=== PATIENT | female | born 1970 | race Caucasian/White ===

== ENCOUNTER 2022-06-20 16:21 | Emergency (ER) | payer OTHER ==
--- NOTE | 2022-06-20 18:50 | RAD REPORT ---
EXAM DESCRIPTION: [place] Single View06/20/2022 6:16 pm CLINICAL HISTORY: Chest pain COMPARISON: none FINDINGS: The lungs are hyperaerated. The The lungs appear clear of acute infiltrate. The heart is normal size IMPRESSION: No acute abnormalities displayed
[2022-06-20 20:28] LABS: Absolute Lymphocytes (CBC) 1.9 K/uL (0.7-4.9); Hematocrit 40.2 % (36.0-45.0); Lymphocytes % 34.2 % (15.3-44.8); MPV 8.3 fL (7.6-11.3); Protime INR 1.05; RBC Red Blood Cell Count 4.51 M/uL (3.86-4.86)
[2022-06-20 20:30] LABS: Urine Bacteria None Seen /HPF (<20); Urine Crystals Unidentified Few /HPF (None Seen); Urine Mucus Slight /HPF (None Seen); Urine RBC <5 /HPF (None Seen)
[2022-06-20 20:50] LABS: ALT/SGPT 19 U/L (13-56); AST/SGOT 17 U/L (15-37); Albumin 3.8 g/dL (3.4-5.0); Alkaline Phosphatase 83 U/L (45-117); BUN Blood Urea Nitrogen 5 mg/dL (7-18); Bicarbonate 28 mmol/L (21-32); Bilirubin Total 0.3 mg/dL (0.2-1.0); Glomerular Filtration Rate 105 ml/min (=/>90); Glucose Level 96 mg/dL (74-106); Magnesium 2.1 mg/dL (1.6-2.4); Potassium 3.2 mmol/L (3.5-5.1); Protein, Total 7.8 g/dL (6.4-8.2); Sodium Level 139 mmol/L (136-145); Troponin High Sensitivity 5.6 pg/mL (<58.9)
[2022-06-20 21:04] LABS: Bilirubin Direct < 0.1 mg/dL (0-0.2)
--- NOTE | 2022-06-20 21:16 | ER ---
Nurse's Notes [facility] Name: David Luna Age: 52 yrs Sex: Female : 1970 Arrival Date: 06/20/2022 Time: 16:33 Bed 17 Private MD: Diagnosis: Palpitations;Hypokalemia Presentation: 06/20 16:54 Chief complaint: Patient states: palpitations that began March 2022 and have become aa5 constant x 2 weeks ago. Pt also reports urinary frequency x 1 week ago. Coronavirus screen: At this time, the client does not indicate any symptoms associated with coronavirus-19. Ebola Screen: Patient denies travel to an Ebola-affected area in the 21 days before illness onset. Initial Sepsis Screen: Does the patient meet any 2 criteria? No. Patient's initial sepsis screen is negative. Does the patient have a suspected source of infection? No. Patient's initial sepsis screen is negative. Risk Assessment: Do you want to hurt yourself or someone else? Patient reports no desire to harm self or others. Onset of symptoms was March 2022. 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 - Social history:: Smoking status: Patient reports the use of cigarette tobacco products, smokes one-half pack cigarettes per day. Screenin:35 [facility] ED Fall Risk Assessment (Adult) History of falling in the last 3 months, pf1 including since admission No falls in past 3 months (0 pts) Confusion or Disorientation No (0 pts) Intoxicated or Sedated No (0 pts) Impaired Gait No (0 pts) Mobility Assist Device Used No (0 pt) Altered Elimination No (0 pt) Score/Fall Risk Level 0 - 2 = Low Risk Oriented to surroundings, Maintained a safe environment, Educated pt \T\ family on fall prevention, incl call for assistance when getting out of bed, Assessed \T\ reinforced patient's understanding of fall precautions, Provided non-skid footwear, Hourly rounding (assess needs \T\ fall precautionary measures) done, Used ambulatory aids as needed (educated on \T\ assisted with), Used gait belt as appropriate. 19:35 Abuse screen: Denies threats or abuse. Nutritional screening: No deficits noted. pf1 Tuberculosis screening: No symptoms or risk factors identified. Assessment: 19:30 General: Appears in no apparent distress. comfortable, well groomed, well developed, pf1 Behavior is cooperative, appropriate for age, anxious. 19:30 Pain: Denies pain. Neuro: No deficits noted. Level of Consciousness is awake, alert, pf1 obeys commands, Oriented to person, place, time, situation. Cardiovascular: Reports palpitations, since March 2022, worse in the past 2 weeks, more consistence since yesterday Capillary refill < 3 seconds. Respiratory: No deficits noted. Airway is patent Respiratory effort is even, unlabored, Respiratory pattern is regular, symmetrical. GI: No deficits noted. No signs and/or symptoms were reported involving the gastrointestinal system. Abdomen is flat, Bowel sounds present X 4 quads. : No deficits noted. EENT: No deficits noted. No signs and/or symptoms were reported regarding the EENT system. Derm: No deficits noted. No signs and/or symptoms reported regarding the dermatologic system. Vital Signs: 16:54 BP 159 / 86; Pulse 94; Resp 18 S; Temp 98.3(TE); Pulse Ox 100% on R/A; Weight 54.43 kg aa5 (R); Height 5 ft. 1 in. (154.94 cm) (R); 19:35 BP 105 / 79; Pulse 81; Resp 17; Temp 98; Pulse Ox 100% ; Pain 0/10; pf1 20:30 BP 128 / 93; Pulse 80; Resp 19; Pulse Ox 100% ; Pain 0/10; pf1 21:30 BP 124 / 87; Pulse 77; Resp 16; Temp 98.3; Pulse Ox 99% ; Pain 0/10; pf1 16:54 Body Mass Index 22.67 (54.43 kg, 154.94 cm) aa5 ED Course: 16:33 Patient arrived in ED. mr 16:54 Arm band placed on. aa5 16:55 Triage completed. aa5 17:03 EKG completed in triage. Results shown to MD. aa5 17:36 [facility] 7 17:36 Tra Portillo MD is Attending Physician. [facility] 18:18 XRAY Chest (1 view) In Process Unspecified. EDMS 19:14 Annamaria carty, RN is Primary Nurse. pf1 19:35 Patient has correct armband on for positive identification. Placed in gown. Bed in low pf1 position. Call light in reach. 20:06 Inserted saline lock: 20 gauge in right antecubital area, using aseptic technique. pf1 Blood collected. 21:00 No provider procedures requiring assistance completed. pf1 21:35 IV discontinued, intact, bleeding controlled, No redness/swelling at site. Pressure pf1 dressing applied. Administered Medications: 21:30 Drug: Potassium Effervescent Tablet 50 mEq Route: PO; pf1 21:34 Follow up: Response: No adverse reaction pf1 21:39 Follow up: Response: No adverse reaction pf1 Medication: 19:40 VIS not applicable for this client. pf1 Outcome: 21:15 Discharge ordered by . snw 21:39 Patient left the ED. 21:39 Discharged to home ambulatory. pf1 21:39 Condition: improved 21:39 Discharge instructions given to patient, Instructed on discharge instructions, follow up and referral plans. Demonstrated understanding of instructions, follow-up care. Signatures: Dispatcher [employer] EDPR Rosa Jimenes, [employer] OFFICER-Sherrill Tyshawn May LeijaAbigail, RN RN Breana Leal Ceci Ceja FNP [place] [id number] Annamaria carty, RN RN pf1
--- NOTE | 2022-06-20 21:16 | EDPHYS ---
Physician Documentation [facility] Name: David Luna Age: 52 yrs Sex: Female : 1970 Arrival Date: 06/20/2022 Time: 16:33 Bed 17 Private MD: ED Physician Tra Portillo HPI: 06/20 17:00 This 52 yrs old Female presents to ER via Ambulatory with complaints of Palpitations. jh7 17:00 The patient presents with a history of irregular heart beat, heart skipping beats. jh7 Context: The symptoms occur with light activity. Onset: The symptoms/episode began/occurred 2 month(s) ago, and became worse 2 week(s) ago. Associated signs and symptoms: Pertinent negatives: chest pain, lightheadedness, nausea, SOB, syncope, vomiting. Patient states that it feels like there is a bubble in her chest. She also reports that although it may not be related she has been experiencing urinary frequency.. 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 - Social history:: Smoking status: Patient reports the use of cigarette tobacco products, smokes one-half pack cigarettes per day. ROS: 17:00 Constitutional: Negative for fever, chills, and weight loss, Eyes: Negative for injury, jh7 pain, redness, and discharge, ENT: Negative for injury, pain, and discharge, Neck: Negative for injury, pain, and swelling, Cardiovascular: Negative for chest pain, palpitations, and edema, Respiratory: Negative for shortness of breath, cough, wheezing, and pleuritic chest pain, Abdomen/GI: Negative for abdominal pain, nausea, vomiting, diarrhea, and constipation, Back: Negative for injury and pain, MS/Extremity: Negative for injury and deformity, Skin: Negative for injury, rash, and discoloration, Neuro: Negative for headache, weakness, numbness, tingling, and seizure. 17:00 Cardiovascular: Positive for palpitations, Negative for chest pain. 17:00 : Positive for urinary frequency, Negative for flank pain, burning with urination. 17:00 All other systems are negative. Exam: 17:00 Constitutional: This is a well developed, well nourished patient who is awake, alert, jh7 and in no acute distress. Head/Face: Normocephalic, atraumatic. Neck: Trachea midline, no thyromegaly or masses palpated, and no cervical lymphadenopathy. Supple, full range of motion without nuchal rigidity, or vertebral point tenderness. No Meningismus. Cardiovascular: Regular rate and rhythm with a normal S1 and S2. No gallops, murmurs, or rubs. Normal PMI, no JVD. No pulse deficits. Respiratory: Lungs have equal breath sounds bilaterally, clear to auscultation and percussion. No rales, rhonchi or wheezes noted. No increased work of breathing, no retractions or nasal flaring. Abdomen/GI: Soft, non-tender, with normal bowel sounds. No distension or tympany. No guarding or rebound. No evidence of tenderness throughout. Skin: Warm, dry with normal turgor. Normal color with no rashes, no lesions, and no evidence of cellulitis. MS/ Extremity: Pulses equal, no cyanosis. Neurovascular intact. Full, normal range of motion. Neuro: Awake and alert, GCS 15, oriented to person, place, time, and situation. Motor strength 5/5 in all extremities. Sensory grossly intact. Normal gait. Vital Signs: 16:54 BP 159 / 86; Pulse 94; Resp 18 S; Temp 98.3(TE); Pulse Ox 100% on R/A; Weight 54.43 kg aa5 (R); Height 5 ft. 1 in. (154.94 cm) (R); 19:35 BP 105 / 79; Pulse 81; Resp 17; Temp 98; Pulse Ox 100% ; Pain 0/10; pf1 20:30 BP 128 / 93; Pulse 80; Resp 19; Pulse Ox 100% ; Pain 0/10; pf1 21:30 BP 124 / 87; Pulse 77; Resp 16; Temp 98.3; Pulse Ox 99% ; Pain 0/10; pf1 16:54 Body Mass Index 22.67 (54.43 kg, 154.94 cm) aa MDM: 17:36 Patient medically screened. jh7 21:16 Data reviewed: vital signs, nurses notes, lab test result(s), EKG, radiologic studies. [facility] Data interpreted: Pulse oximetry: on room air is 100 %. Interpretation:. Counseling: I had a detailed discussion with the patient and/or guardian regarding: the historical points, exam findings, and any diagnostic results supporting the discharge/admit diagnosis, lab results, radiology results, the need for outpatient follow up, to return to the emergency department if symptoms worsen or persist or if there are any questions or concerns that arise at home. Special discussion: Based on the patient's history, exam, and Dx evaluation, there is no indication for emergent intervention or inpatient Tx. It is understood by the patient/guardian that if the Sx's persist or worsen they need to return immediately for re-evaluation. Based on the history and exam findings, there is no indication for further emergent testing or inpatient evaluation. I discussed with the patient/guardian the need to see the offshore wind operations manager for further evaluation of the symptoms. I discussed with the patient/guardian the need to see the primary care provider for further evaluation of the symptoms. 06/20 17:37 Order name: Basic Metabolic Panel; Complete Time: 21:[address] [facility] 06/20 17:37 Order name: CBC with Diff; Complete Time: 20:[address] [facility] 06/20 17:37 Order name: LFT's; Complete Time: 21:[address] [facility] 06/20 17:37 Order name: Magnesium; Complete Time: 21:[address] [facility] 06/20 17:37 Order name: PT-INR; Complete Time: 20:[address] [facility] 06/20 17:37 Order name: Troponin HS; Complete Time: 21:[address] [facility] 06/20 17:07 Order name: EKG - Nurse/Tech; Complete Time: 17:07 aa5 06/20 17:37 Order name: XRAY Chest (1 view); Complete Time: 19:[address] [facility] 06/20 17:37 Order name: EKG; Complete Time: 17:[address] [facility] 06/20 17:37 Order name: Cardiac monitoring; Complete Time: 20:[address] [facility] 06/20 17:37 Order name: IV Saline Lock; Complete Time: 20:[address] [facility] 06/20 17:37 Order name: Labs collected and sent; Complete Time: 20:[address] [facility] 06/20 17:37 Order name: Urine Microscopic Only; Complete Time: 20:[address] [facility] 06/20 17:37 Order name: O2 Per Protocol; Complete Time: 20:[address] [facility] 06/20 17:37 Order name: O2 Sat Monitoring; Complete Time: 20:[address] [facility] 06/20 17:37 Order name: Urine Dipstick-Ancillary (obtain specimen); Complete Time: 20:[address] [facility] EC:00 Rate is 80 beats/min. Rhythm is regular. QRS [place] is Normal. [place] interval is normal at [facility] 146 msec. QRS interval is normal at 72 msec. QT interval is normal at 362 msec. No Q waves. T waves are Normal. No ST changes noted. Clinical impression: Normal ECG. Administered Medications: 21:30 Drug: Potassium Effervescent Tablet 50 mEq Route: PO; pf1 21:34 Follow up: Response: No adverse reaction pf1 21:39 Follow up: Response: No adverse reaction pf1 Disposition: 06/21 12:36 Co-signature as Attending Physician, Tra Portillo MD I agree with the assessment and rt plan of care. Disposition Summary: 06/20/22 21:15 Discharge Ordered Location: Home snw Condition: Stable snw Diagnosis - Palpitations snw - Hypokalemia snw Followup: snw - With: Emergency Department - When: As needed - Reason: Worsening of condition Followup: snw - With: Private Physician - When: 1 week - Reason: Recheck today's complaints, Continuance of care, Re-evaluation by your physician Discharge Instructions: - Discharge Summary Sheet snw - Potassium Content of Foods snw - Palpitations snw - Hypokalemia snw - Cardiopulmonary Exercise Stress Test snw Forms: - Medication Reconciliation Form snw - Thank You Letter snw - Antibiotic Education snw - Prescription Opioid Use snw Signatures: Dispatcher [employer] EDMS Rosa Jimenes FNP-C YOUTH WORKER-[place] Abigail Leija, RN RN aa5 Ceci Ceja FNP FNP 7 Tra Portillo MD MD rt Annamaria carty RN RN pf1 Corrections: (The following items were deleted from the chart) 06/20 19:55 17:00 Context: The symptoms occur without known cause, [place] [id number]
[2022-06-20] MEDS ORDERED: POTASSIUM 25 MEQ EFFERV TAB ONE (21:26)
[2022-06-20 21:47] VITALS: BP 159/86; TEMP 98.3; O2SAT 100
[2022-06-21 08:15] LABS: Urine Blood 1+ (Negative); Urine Glucose Negative (Negative); Urine Protein Negative (Negative); Urine Specific Gravity 1.015 (1.005-1.030)
== END 2022-06-20 21:39 | disposition home or self-care (01) ==
LOC: ER 16:21
DX: E87.6 Hypokalemia (principal); F17.210 Nicotine dependence, cigarettes, uncomplicated
CPT/HCPCS: 36415; 71045; 80048; 80076; 81003; 81015; 83735; 84484; 85025; 85610; 93005